=== PATIENT | male | born 1990 | race Hispanic/Latino ===

== ENCOUNTER → 2019-07-11 | Outpatient (CLI) | payer OTHER | END | disposition home or self-care (01) | LOC: RAH 13:18 → EEVIPCON 13:18 | PROVIDERS: ATTEND Internal Medicine | DX: T84.60XA Infection and inflammatory reaction due to internal fixation device of unspecified site, initial encounter (principal); M86.662 Other chronic osteomyelitis, left tibia and fibula; M79.89 Other specified soft tissue disorders; X58.XXXA Exposure to other specified factors, initial encounter; Y93.89 Activity, other specified; Y92.89 Other specified places as the place of occurrence of the external cause; Y99.8 Other external cause status | CPT/HCPCS: 73590 ==